=== PATIENT | female | born 1960 | race Two or more races ===

== ENCOUNTER → 2024-09-29 | Outpatient (CLI) | payer MEDICAID, SELFPAY ==
--- NOTE | 2024-09-29 10:30 | XR_ITS ---
Examination: Breast ultrasound, unilateral, left complete Date and time of exam: September 29, 2024 1036 hours INDICATIONS: Left breast sonogram March 31, 2024 Technique: Real-time thakkar scale ultrasonographic imaging performed left breast including all 4 quadrants as well as nipple retroareolar and axillary region. Findings: 2:00 nodule lobular margins 8 x 9 mm 5:00 nodule indistinct margins 9 x 8 mm IMPRESSION: BI-RADS Category 4: Suspicious for malignancy Suspicious nodule 5:00 position left breast, biopsy is needed to exclude breast carcinoma, this nodule is amenable to ultrasound-guided breast biopsy for diagnosis
== END | disposition home or self-care (01) ==
PROVIDERS: PCP Physician Assistant; Referring Provider Physician Assistant; Visit Provider Physician Assistant
DX: N63.23 Unspecified lump in the left breast, lower outer quadrant (principal); R92.342 Mammographic extreme density, left breast
CPT/HCPCS: 76641